=== PATIENT | female | born 1965 | race Caucasian/White ===

== ENCOUNTER 2018-09-18 12:11 | Emergency (ER) | payer OTHER ==
[~2018-09-18] VITALS: Ht 157.5 cm; Wt 81.6 kg
[2018-09-18] MEDS ORDERED: CAMBIA50 MG (12:43)
[2018-09-18] MEDS ORDERED: GLUCOTEN CAPLE1 EACH (12:43)
== END 2018-09-18 16:38 | disposition home or self-care (01) ==
LOC: ER 12:11
DX: S80.02XA Contusion of left knee, initial encounter (principal); S80.01XA Contusion of right knee, initial encounter; S90.111A Contusion of right great toe without damage to nail, initial encounter; W18.39XA Other fall on same level, initial encounter; Y93.89 Activity, other specified; Y92.89 Other specified places as the place of occurrence of the external cause; Y99.8 Other external cause status

== ENCOUNTER 2023-04-02 11:46 | Outpatient (CLI) | payer OTHER ==
[~2023-04-02 11:46] MED LIST: CAMBIA50 MG; GLUCOTEN CAPLE1 EACH
== END 2023-04-02 11:52 | disposition home or self-care (01) ==
LOC: RAD 11:46
PROVIDERS: ATTEND Orthopaedic Surgery
DX: M25.561 Pain in right knee (principal); M25.562 Pain in left knee; S83.200A Bucket-handle tear of unspecified meniscus, current injury, right knee, initial encounter
CPT/HCPCS: 73721

== ENCOUNTER 2023-11-08 15:57 | Outpatient (CLI) | payer OTHER | END 2023-11-08 16:07 | disposition home or self-care (01) | LOC: RAD 15:57 | PROVIDERS: ATTEND Surgery Surgery of the Hand | DX: M99.01 Segmental and somatic dysfunction of cervical region (principal); M99.02 Segmental and somatic dysfunction of thoracic region; M99.03 Segmental and somatic dysfunction of lumbar region; M99.04 Segmental and somatic dysfunction of sacral region ==

== ENCOUNTER 2023-11-20 14:58 | Outpatient (CLI) | payer OTHER | END 2023-11-20 15:06 | disposition home or self-care (01) | LOC: MRI 14:58 | PROVIDERS: ATTEND General Practice | DX: M43.06 Spondylolysis, lumbar region (principal) | CPT/HCPCS: 72148 ==

== ENCOUNTER 2023-12-25 14:35 | Outpatient (CLI) | payer OTHER | END 2023-12-25 14:47 | disposition home or self-care (01) | LOC: MRI 14:35 | PROVIDERS: ATTEND Orthopaedic Surgery | DX: M25.532 Pain in left wrist (principal) | CPT/HCPCS: 73718 ==

== ENCOUNTER 2024-01-21 08:00 | Outpatient (CLI) | payer OTHER ==
[2024-01-28] MEDS ORDERED: LIDOCAINE HCL 1%/EPINEPHRINE 50ML VIAL IJ ONE (07:07)
== END 2024-01-21 08:01 | disposition home or self-care (01) ==
LOC: LAB 08:00 → EDSTATUS 01-28 12:45 → SURG 01-28 12:45
PROVIDERS: ATTEND Orthopaedic Surgery
DX: M17.11 Unilateral primary osteoarthritis, right knee (principal); M85.661 Other cyst of bone, right lower leg